=== PATIENT | male | born 1980 | race African-American/Black ===

== ENCOUNTER 2020-05-15 03:45 | Emergency (ER) | payer SELFPAY ==
[~2020-05-15] VITALS: Ht 180.3 cm; Wt 97.5 kg
[2020-05-15] MEDS ORDERED: CLONIDINE HCL 0.2 MG TAB PO ONE (04:15)
[2020-05-15] MEDS ORDERED: ATENOLOL50 MG PO (04:16)
[2020-05-15] MEDS ORDERED: AMLODIPINE BESY10 MG PO (04:16)
--- NOTE | 2020-05-15 04:17 | Emergency Department Note ---
History of Present Illnes History of Present Illness Chief Complaint: Hypertension History of Present Illness This is a 39 year old male AAm hx htn on no meds c/o insomnia for tonight and his BP has been rising. no c/p no harris no sob. . Historian: Patient Arrival Mode: Car Diploma Pharmacy Technician Required: No Onset (how long ago): day(s) Radiation: Reports non-radiation Onset quality: gradual Duration (how long): day(s) Progression: worsening Relieving factors: none Exacerbating factors: none Associated symptoms: Reports other Treatments prior to arrival: none Past Medical/Family History Physician Review I have reviewed the patient's past medical and family history. Any updates have been documented here. Past Medical History Recent Fever: No Clinical Suspicion of Infectio: No New/Unexplained Change in Ment: No Past Medical History: Hypertension Past Surgical History: None Social History Smoking Cessation: Current some day smoker Counseling Performed: Yes Alcohol Use: Occasional Any Illegal Drug Use: No TB Exposure/Symptoms: No Physically hurt or threatened: No Other Any Pre-Existing Lines (PICC,: No Is patient up to date on immun: No Last Flu: NO Last Pneumovax: NO Review of Systems Review of Systems Constitutional: Reports no symptoms EENTM: Reports no symptoms Cardiovascular: Reports no symptoms Respiratory: Reports no symptoms Gastrointestinal: Reports no symptoms Genitourinary: Reports no symptoms Musculoskeletal: Reports no symptoms Integumentary: Reports no symptoms Neurological: Reports no symptoms Psychological: Reports no symptoms Endocrine: Reports no symptoms Hematological/Lymphatic: Reports no symptoms Physical Exam Related Data Vital signs reviewed: Yes Physical Exam CONSTITUTIONAL Constitutional: Present well-developed, Present well-nourished HENT HENT: Present normocephalic, Present atraumatic, Present oropharynx clear/moist, Present nose normal HENT L/R: Present left ext ear normal, Present right ext ear normal EYES Eyes: Reports PERRL, Reports conjunctivae normal NECK Neck: Present ROM normal PULMONARY Pulmonary: Present effort normal, Present breath sounds normal CARDIOVASCULAR Cardiovascular: Present regular rhythm, Present heart sounds normal, Present capillary refill normal, Present normal rate GASTROINTESTINAL Abdominal: Present soft, Present nontender, Present bowel sounds normal GENITOURINARY Genitourinary: Present exam deferred SKIN Skin: Present warm, Present dry MUSCULOSKELETAL Musculoskeletal: Present ROM normal NEUROLOGICAL Neurological: Present alert, Present oriented x 3, Present no gross motor or sensory deficits PSYCHOLOGICAL Psychological: Present mood/affect normal, Present judgement normal Assessment & Plan Medical Decision Making MDM uncontrolled htn, no symptom Assessment & Plan Final Impression: (1) Benign essential HTN (2) Insomnia Depart Disposition: HOME, SELF-residential Meds Active Scripts Amlodipine Besylate (AMLODIPINE BESYLATE) 10 Mg Tablet, 10 MG PO DAILY, #30 TAB Prov:TJ MCNEILL MD 05/15/20 Atenolol (ATENOLOL) 50 Mg Tablet, 1 TAB PO DAILY, #30 Prov:TJ MCNEILL MD 05/15/20 Medications in the ED clonidine 0.2 mg Physician Attestation Provider Attestation f/u clinics for BP treatment TJ MCNEILL MD May 15, 2020 04:17
[2020-05-15] MEDS ORDERED: CLONIDINE HCL 0.1 MG TAB ONE (04:24)
== END 2020-05-15 04:30 | disposition home or self-care (01) ==
LOC: FSED 03:45
DX: I10 Essential (primary) hypertension (principal); G47.00 Insomnia, unspecified; F17.210 Nicotine dependence, cigarettes, uncomplicated
CPT/HCPCS: 99283